=== PATIENT | female | born 1985 | race American Indian/Alaskan Native ===

== ENCOUNTER 2017-09-26 01:57 | Inpatient (IN) | payer SELFPAY ==
[2017-09-26 04:37] LABS: Basophils % (Auto) 0.3 % (0.0-1.8); Eosinophils # (Auto) 0.2 K/mm3 (0.0-0.4); Eosinophils % (Auto) 1.8 % (0.0-4.3); Hemoglobin 10.2 gm/dl (10.1-14.3); Lymphocytes # (Auto) 1.8 K/mm3 (1.2-5.4); Mean Corpuscular HGB Conc 33 % (30-34); Mean Corpuscular Hemoglobin 27 pg (28-32); Mean Corpuscular Volume 84 fl (79-97); Monocytes # (Auto) 0.9 K/mm3 (0.0-0.8); Monocytes % (Auto) 7.1 % (0.0-7.3); Platelet Count 274 K/mm3 (140-440); Red Blood Count 3.71 M/mm3 (3.65-5.03); Red Cell Distribution Width 15.2 % (13.2-15.2)
--- NOTE | 2017-09-26 05:25 | Ultrasound Report ---
FINAL REPORT EXAM: US OB > = 14 WEEKS FETUS HISTORY: 19 weeks. abd pain and AMI leakage COMPARISONS: None. FINDINGS: Transabdominal grayscale and color Doppler 2nd trimester ultrasound There is a single living intrauterine with recorded cardiac activity of 162 beats per minute. Amniotic fluid volume is decreased. Amniotic fluid index is less than 1 cm. The location of the appears abnormally low and may extend into the cervix. Biparietal diameter is 3.7 cm Head circumference is 14.6 cm Abdominal circumference is 10.7 cm Femoral length is 2.7 cm Estimated gestational age by ultrasound today is 17 weeks 3 days, and estimated weight of 193 grams is in the 1st percentile based on prior established dating. IMPRESSION: A single living is detected in the lower uterine segment possibly extending into the cervix with abnormally low amniotic fluid volume. Coupled with history, the most likely diagnosis is in progress. A prior comparison showing the in a normal location would be helpful. Close interval follow-up is suggested. Dr. Law discussed findings with Dr. Palafox At 0417 central Time on 09/26/2017 immediately following the examination.
[2017-09-26] MEDS ORDERED: SUBLIMAZE IV ONE ×2 (06:16→08:16)
--- NOTE | 2017-09-26 06:17 | Emergency Department Report ---
ED HPI - General Chief complaint: Vaginal Bleeding Stated complaint: VAG BLEEDING Time Seen by Provider: 09/26/17 06:10 Source: patient, RN notes reviewed Mode of arrival: Stretcher Limitations: No Limitations - History of Present Illness Initial comments: This is a 31-year-old female who is previously unknown to this provider. She is 6, para 5. 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 She has not had care. Patient reports that she was seen at another hospital last week for leaking membranes. She reports that she was instructed to manage it expectantly. She presents to the ER last night with a complaint of abdominal cramping, vaginal bleeding and discomfort. Symptoms are constant they do not radiate anywhere, they do not have exacerbating or relieving factors. No headache, neck pain, chest pain, shortness of breath, denies urinary symptoms. MD Complaint: abdominal pain, vaginal bleeding, "contractions", other -: Gradual, days(s) Location: pelvis Severity: moderate Quality: cramping Consistency: constant Improves with: none Worsens with: none Associated symptoms: vaginal bleeding, abdominal pain. denies: nausea/vomiting , vaginal discharge, dysuria, headache, vision changes, malaise, rash, seizure, shortness of breath, syncope, weakness Vaginal bleeding: light :: Yes OB History - Current : other OB History - Previous Pregnancies: other Pre-mic care: none - Related Data Previous Rx's Medication Instructions Recorded Last Taken Type Amoxicillin [Trimox CAP] 500 mg PO BID #20 capsule 04/02/17 Unknown Rx Allergies Allergy/AdvReac Type Severity Reaction Status Date / Time chocolate Allergy Rash Uncoded 06/12/13 21:34 ED Review of Systems ROS: Stated complaint: VAG BLEEDING Other details as noted in HPI Comment: All other systems reviewed and negative ED Past Medical Hx - Past Medical History Previous Medical History?: No Additional medical history: bronchitis, heart murmur - Surgical History Past Surgical History?: No - Social History Smoking Status: Never Smoker Substance Use Type: None - Medications Home Medications: Home Medications Medication Instructions Recorded Confirmed Last Taken Type Amoxicillin [Trimox CAP] 500 mg PO BID #20 capsule 04/02/17 Unknown Rx ED Physical Exam - General Limitations: No Limitations General appearance: alert, in no apparent distress - Head Head exam: Present: atraumatic, normocephalic - Eye Eye exam: Present: normal appearance, EOMI. Absent: nystagmus - ENT ENT exam: Present: normal exam, normal orophraynx, mucous membranes moist, normal external ear exam - Neck Neck exam: Present: normal inspection, full ROM - Respiratory Respiratory exam: Present: normal lung sounds bilaterally. Absent: respiratory distress - Cardiovascular Cardiovascular Exam: Present: regular rate, normal rhythm, normal heart sounds. Absent: systolic murmur, diastolic murmur, rubs, gallop - GI/Abdominal GI/Abdominal exam: Present: soft, normal bowel sounds. Absent: distended, tenderness, guarding, rebound, rigid, pulsatile mass - Extremities Exam Extremities exam: Present: normal inspection, full ROM, normal capillary refill. Absent: pedal edema, joint swelling, calf tenderness - Back Exam Back exam: Present: normal inspection, full ROM. Absent: tenderness, CVA tenderness (R), paraspinal tenderness, vertebral tenderness - Neurological Exam Neurological exam: Present: alert, oriented X3, CN II-XII intact, normal gait, other (Extraocular movements intact. Tongue midline. No facial droop. Facial sensation intact to light touch in the V1, V2, V3 distribution bilaterally. 5 and 5 strength in 4 extremities.. Sensation is intact to light touch in 4 extremities.). Absent: motor sensory deficit - Psychiatric Psychiatric exam: Present: normal affect, normal mood - Skin Skin exam: Present: warm, dry, intact, normal color. Absent: rash ED Course Vital Signs 09/26/17 09/26/17 09/26/17 03:12 05:48 06:00 Temperature 98.4 F Pulse Rate 72 74 Respiratory 16 25 H Rate Blood Pressure 120/70 113/62 113/62 O2 Sat by Pulse 98 100 Oximetry 09/26/17 09/26/17 09/26/17 06:15 06:31 06:43 Temperature Pulse Rate 68 76 Respiratory 17 22 18 Rate Blood Pressure 109/59 O2 Sat by Pulse 100 99 98 Oximetry ED Medical Decision Making - Lab Data Result diagrams: 09/26/17 04:21 Vital Signs 09/26/17 09/26/17 09/26/17 03:12 05:48 06:00 Temperature 98.4 F Pulse Rate 72 74 Respiratory 16 25 H Rate Blood Pressure 120/70 113/62 113/62 O2 Sat by Pulse 98 100 Oximetry 09/26/17 09/26/17 09/26/17 06:15 06:31 06:43 Temperature Pulse Rate 68 76 Respiratory 17 22 18 Rate Blood Pressure 109/59 O2 Sat by Pulse 100 99 98 Oximetry Lab Results 09/26/17 09/26/17 09/26/17 Range/Units 04:21 04:21 04:21 WBC 12.0 H (4.5-11.0) K/mm3 RBC 3.71 (3.65-5.03) M/mm3 Hgb 10.2 (10.1-14.3) gm/dl Hct 31.0 (30.3-42.9) % MCV 84 (79-97) fl MCH 27 L (28-32) pg MCHC 33 (30-34) % RDW 15.2 (13.2-15.2) % Plt Count 274 (140-440) K/mm3 Lymph % (Auto) 15.0 (13.4-35.0) % [place] % (Auto) 7.1 (0.0-7.3) % Eos % (Auto) 1.8 (0.0-4.3) % Baso % (Auto) 0.3 (0.0-1.8) % Lymph # 1.8 (1.2-5.4) K/mm3 [place] # 0.9 H (0.0-0.8) K/mm3 Eos # 0.2 (0.0-0.4) K/mm3 Baso # 0.0 (0.0-0.1) K/mm3 Seg Neutrophils % 75.8 H (40.0-70.0) % Seg Neutrophils # 9.1 H (1.8-7.7) K/mm3 HCG, Quant 11386 H (0-4) mIU/mL Blood Type O POSITIVE Antibody Screen Negative - Radiology Data Radiology results: report reviewed, image reviewed Obstetrics ultrasound demonstrates a single living detected in the lower uterine segment, possibly extending into the cervix, with oligohydramnios. This is most likely an in progress, estimated gestational age is 17 weeks and 3 days - Medical Decision Making Differential diagnosis, including but not limited to: , miscarriage, oligohydramnios Assessment and plan: 31-year-old female who reports no care with inevitable , and oligohydramnios. She is hemodynamically stable at this time. She is actively miscarrying. Case is presented to the TIGHTENING MACHINE OPERATOR physician, Dr. Serrato, Who accepted the patient to her service. Critical care attestation.: If time is entered above; I have spent that time in minutes in the direct care of this critically ill patient, excluding procedure time. ED Disposition Clinical Impression: Miscarriage Oligohydramnios Qualifiers: Fetus number: single or unspecified fetus Trimester: second trimester Qualified Code(s): O41.02X0 - Oligohydramnios, second trimester, not applicable or unspecified Disposition: DC-09 OP ADMIT IP TO THIS HOSP Is pt being admited?: Yes Condition: Good Referrals: PRIMARY CARE, [Primary Care Provider] - 3-5 Days
--- NOTE | 2017-09-26 07:09 | History and Physical Report ---
History of Present Illness Date of examination: 09/26/17 Chief complaint: Vaginal bleeding History of present illness: This is a 31-year-old female 6 para 5 who presented to the emergency room complaining of vaginal bleeding. Patient states she was evaluated at [facility] last week for abdominal pain and leaking fluid from the vagina. She was diagnosed with a 19 week intrauterine and ruptured membranes. She states she was discharged home and instructed to follow-up with her contracting specialist for evaluation. Patient stated she started having cramping and bleeding and presented to the ED for further evaluation. Ultrasound revealed a 17 week in the lower uterine segment and vagina with no fluid consistent with an inevitable . Pelvic exam revealed foul-smelling odor and discharge with parts in the vagina at 0 station. Patient admitted now for a viable . 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: denies: chlamydia, gonorrhea, hepatitis B, hepatitis C, herpes, HIV , syphilis, trichomonas Social history: smoking Medications and Allergies Allergies Allergy/AdvReac Type Severity Reaction Status Date / Time chocolate Allergy Rash Uncoded 06/12/13 21:34 Home Medications Medication Instructions Recorded Confirmed Last Taken Type Amoxicillin [Trimox CAP] 500 mg PO BID #20 capsule 04/02/17 Unknown Rx Review of Systems All systems: negative Genitourinary: leakage of fluid, other - Vital Signs Vital signs: Vital Signs Temp Pulse Resp BP Pulse Ox 98.4 F 72 16 120/70 98 09/26/17 03:12 09/26/17 03:12 09/26/17 03:12 09/26/17 03:12 09/26/17 03:12 Temp Pulse Resp BP Pulse Ox 98.4 F 76 18 109/59 98 09/26/17 03:12 09/26/17 06:31 09/26/17 06:43 09/26/17 06:31 09/26/17 06:43 - Physical Exam Breasts: Positive: deferred Lungs: Positive: Normal air movement Abdomen: Positive: normal appearance, tenderness Genitourinary (Female): Positive: normal external genitalia, normal perenium Vulva: both: normal Vagina: Positive: other (foul-smelling fluid in the vagina with parts palpated at 0 station) - Obstetrical Cervical Dilatation: 10 Cervical Effacement Percentage: 100 station: 0 Results Result Diagrams: 09/26/17 04:21 Abnormal lab results 09/26/17 09/26/17 Range/Units 04:21 04:21 WBC 12.0 H (4.5-11.0) K/mm3 MCH 27 L (28-32) pg Bertie # 0.9 H (0.0-0.8) K/mm3 Seg Neutrophils % 75.8 H (40.0-70.0) % Seg Neutrophils # 9.1 H (1.8-7.7) K/mm3 HCG, Quant 88550 H (0-4) mIU/mL All other labs normal. Ultrasound: report reviewed Assessment and Plan - Patient Problems (1) Inevitable Current Visit: Yes Status: Acute Plan to address problem: Patient is to be admitted to complete delivery due to chorioamnionitis and inevitable (2) Chorioamnionitis in second trimester Current Visit: Yes Status: Acute Qualifiers: Fetus number: single or unspecified fetus Qualified Code(s): O41.1220 - Chorioamnionitis, second trimester, not applicable or unspecified
[2017-09-26] MEDS ORDERED: SUBLIMAZE ONE (08:17)
[2017-09-26] MEDS ORDERED: PITOCin/NS 30 UNIT/500ML 30 UNITS/500 ML BAG IV SCH (10:00)
[2017-09-26] MEDS ORDERED: PITOCin/NS 20 UNIT/1000ML DRIP 20 UNITS/1,000 ML BAG IV SCH (10:00)
[2017-09-26] MEDS ORDERED: ePHEDrine SULFATE IV PRN (10:00)
[2017-09-26] MEDS ORDERED: XYLOCAINE 2% INFILTRATI NR (10:30)
[2017-09-26] MEDS ORDERED: MINERAL OIL PO PRN (10:30)
[2017-09-26] MEDS: SUBLIMAZE IV PRN ×4 (10:30→23:03)
[2017-09-26] MEDS ORDERED: NARCAN 0.4 MG/1 ML IV PRN (10:30)
[2017-09-26] MEDS: ceFAZolin 1 GM in NACL 0.9% 20 ML IV SCH ×2 (11:00→19:00)
--- NOTE | 2017-09-26 11:19 | Progress Note ---
Assessment and Plan - Patient Problems (1) Chorioamnionitis in second trimester Current Visit: Yes Status: Acute Qualifiers: Fetus number: single or unspecified fetus Qualified Code(s): O41.1220 - Chorioamnionitis, second trimester, not applicable or unspecified Plan to address problem: -con't antibx - parts palpated in the vagina. Pt does now want to push at this time but c /o pressure and pain (2) Inevitable Current Visit: Yes Status: Acute Plan to address problem: -at 10 cm dilated, no cervix felt at this time. Pt having active bleeding -anticpate delivery. Subjective - Subjective Date of service: 09/26/17 Principal diagnosis: Prolonged ROM; Chorio; inevitalbe Interval history: Pt c/o pain and pressure parts palpated at 1 to 2+ station at this time.No cervix is felt at this time. Objective - Vital Signs Vital Signs: Vital Signs - 12hr 09/26/17 09/26/17 09/26/17 03:12 05:48 06:00 Temperature 98.4 F Pulse Rate 72 74 Respiratory 16 25 H Rate Blood Pressure 120/70 113/62 113/62 Blood Pressure [Left] O2 Sat by Pulse 98 100 Oximetry 09/26/17 09/26/17 09/26/17 06:15 06:31 06:43 Temperature Pulse Rate 68 76 Respiratory 17 22 18 Rate Blood Pressure 109/59 Blood Pressure [Left] O2 Sat by Pulse 100 99 98 Oximetry 09/26/17 09/26/17 09/26/17 06:45 07:00 07:15 Temperature Pulse Rate 67 69 66 Respiratory 17 20 22 Rate Blood Pressure 108/63 103/55 107/59 Blood Pressure [Left] O2 Sat by Pulse 97 96 Oximetry 09/26/17 09/26/17 09/26/17 07:30 07:45 08:00 Temperature Pulse Rate 78 72 70 Respiratory 21 21 18 Rate Blood Pressure 98/62 108/62 103/53 Blood Pressure [Left] O2 Sat by Pulse 95 95 99 Oximetry 09/26/17 09/26/17 09/26/17 08:15 08:22 08:30 Temperature Pulse Rate 80 83 Respiratory 12 16 18 Rate Blood Pressure 116/58 116/74 109/55 Blood Pressure [Left] O2 Sat by Pulse 94 95 Oximetry 04/09/26/17 09/26/17 08:45 09:00 09:46 Temperature 97.9 F Pulse Rate 70 73 88 Respiratory 17 17 16 Rate Blood Pressure 101/53 98/52 Blood Pressure 120/75 [Left] O2 Sat by Pulse 95 95 Oximetry - Exam Cervical Dilatation: 10 Cervical Effacement Percentage: 100 station: 1+ - Labs Labs: Abnormal Labs 09/26/17 09/26/17 04:21 04:21 WBC 12.0 H MCH 27 L [place] # 0.9 H Seg Neutrophils % 75.8 H Seg Neutrophils # 9.1 H HCG, Quant [id number] H Laboratory Results - last 24 hr 09/26/17 09/26/17 09/26/17 04:21 04:21 04:21 WBC 12.0 H RBC 3.71 Hgb 10.2 Hct 31.0 MCV 84 MCH 27 L MCHC 33 RDW 15.2 Plt Count 274 Lymph % (Auto) 15.0 [place] % (Auto) 7.1 Eos % (Auto) 1.8 Baso % (Auto) 0.3 Lymph # 1.8 [place] # 0.9 H Eos # 0.2 Baso # 0.0 Seg Neutrophils % 75.8 H Seg Neutrophils # 9.1 H HCG, Quant 03722 H Blood Type O POSITIVE Antibody Screen Negative
[2017-09-26 12:49] LABS: Bacteria,Urine 1+ /HPF (Negative); Bilirubin,Urine NEG (Negative); Blood,Urine LG (Negative); Color,Urine Red (Yellow); Urobilinogen,Urine < 2.0 mg/dL (<2.0)
[2017-09-26 12:50] LABS: RBC,Urine > 182.0 /HPF (0.0-6.0)
[2017-09-26] MEDS: LACTATED RINGERS 1,000 ML IV SCH ×2 (13:22→20:15)
[2017-09-26] MEDS ORDERED: ANCEF/NS 1 GM/50 ML 1 GM/50 ML BAG IV SCH (15:03)
[2017-09-26] MEDS ORDERED: STADOL IV PRN (19:41)
--- NOTE | 2017-09-26 22:46 | Procedure Note ---
OB Delivery Note - Vaginal Delivery presentation: unknown Delivery induction: none Delivery monitor: none Route of delivery: Delivery placenta: spontaneous Episiotomy: none Anesthesia: intravenous Delivery comments: Called by RM for delivery of nonviable 17 wk fetus at about 1600pm with delivery of the placenta at this time. Placenta examined and appears to be intact. Minimal bleeding noted. Pt pain is well controlled at this time.
[2017-09-26] MEDS ORDERED: ZOFRAN IV PRN (22:47)
[2017-09-26] MEDS ORDERED: PHENERGAN PR PRN (22:47)
[2017-09-26] MEDS ORDERED: BENADRYL PO PRN (22:47)
[2017-09-26] MEDS ORDERED: PHENERGAN PO PRN (22:47)
[2017-09-26] MEDS ORDERED: DULCOLAX PR PRN (22:47)
[2017-09-26] MEDS ORDERED: TUCKS PAD TP PRN (22:47)
[2017-09-26] MEDS ORDERED: LANSINOH TP PRN (22:47)
[2017-09-26] MEDS ORDERED: SODIUM CHLORIDE FLUSH SYRINGE 10 ML IV PRN (23:00)
[2017-09-27] MEDS: TORADOL IV PRN ×2 (01:05→08:29)
[2017-09-27] MEDS: AMBIEN PO PRN ×2 (02:56→23:10)
[2017-09-27] MEDS ORDERED: D5LR 1,000 ML IV SCH (05:00)
--- NOTE | 2017-09-27 06:26 | Progress Note ---
Assessment and Plan demised baby <20 weeks gestation. VSS afebrile. FF well below Some abdominal tenderness, no guarding. Post del H&H due @ 1000; no s/sx of anemia. Pt stable s/p vag delivery SAB; chorio/PPROM P: continue pathway Pt asks to stay one more day. Will d/c tomorrow Subjective - Subjective Date of service: 09/27/17 (Complex Case Manager Note) Principal diagnosis: 12hr s/p demise; Prolonged ROM; Chorio; inevitalbe Patient reports: appetite normal, voiding normally, pain well controlled, ambulating normally : Objective - Vital Signs Latest vital signs: Vital Signs Temp Pulse Resp BP BP Pulse Ox 09/27/17 05:09 97.7 F 61 18 114/72 09/27/17 01:35 18 09/27/17 01:05 18 09/26/17 23:50 98.3 F 60 18 119/75 100 09/26/17 23:40 97.6 F 62 18 113/62 100 09/26/17 23:33 18 09/26/17 23:25 98.0 F 50 L 18 111/69 100 09/26/17 23:07 98.1 F 57 L 18 102/65 99 09/26/17 23:03 18 09/26/17 20:05 98.2 F 62 18 104/59 96 09/26/17 20:04 18 09/26/17 16:25 98 F 61 18 121/61 09/26/17 14:00 98.1 F 66 16 112/60 09/26/17 09:46 97.9 F 88 16 120/75 09/26/17 09:00 73 17 98/52 95 09/26/17 08:45 70 17 101/53 95 09/26/17 08:30 83 18 109/55 95 09/26/17 08:22 16 116/74 09/26/17 08:15 80 12 116/58 94 09/26/17 08:00 70 18 103/53 99 09/26/17 07:45 72 21 108/62 95 09/26/17 07:30 78 21 98/62 95 09/26/17 07:15 66 22 107/59 09/26/17 07:00 69 20 103/55 96 09/26/17 06:45 67 17 108/63 97 09/26/17 06:43 18 98 09/26/17 06:31 76 22 109/59 99 Intake and Output 09/26/17 09/26/17 09/27/17 14:59 22:59 06:59 Intake Total 20 860.417 Balance 20 860.417 Intake: IV 20 860.417 Lactated Ringers 1,000 ml 860.417 @ 125 mls/hr IV DIRECT LUCIA Rx#:[id number] Left Antecubital 20 - Exam Breasts: Present: normal Cardiovascular: Present: Regular rate Lungs: Present: Normal air movement Abdomen: Present: normal appearance, soft Vulva: both: normal Uterus: Present: firm, tenderness, fundal height below umbilicus Extremities: Present: normal Deep Tendon Reflex Grade: Normal +2 - Labs Labs: Abnormal lab results 09/26/17 Range/Units 11:37 Urine WBC (Auto) 59.0 H (0.0-6.0) /HPF
[2017-09-27] MEDS: MOTRIN PO SCH ×3 (12:28→23:06)
[2017-09-27] MEDS ORDERED: COLACE PO SCH (17:00)
[2017-09-27] MEDS: FEOSOL PO SCH (22:44)
[2017-09-27] MEDS ORDERED: NORCO 7.5/325 PO ONE (23:40)
[2017-09-28] MEDS: TYLENOL PO PRN ×2 (03:47→09:44)
[2017-09-28] MEDS ORDERED: BOOSTRIX IM ONE (06:00)
[2017-09-28] MEDS: MOTRIN PO SCH (06:25)
--- NOTE | 2017-09-28 08:18 | Discharge Summary ---
Providers - Providers Date of Admission: 09/26/17 07:56 Date of discharge: 09/28/17 (desires d/c home) Attending physician: LIZA COOLEY Primary care physician: OUTPATIENT CODING SPECIALIST Hospitalization Reason for admission: labor, chorio Condition: Good Pertinent studies: post delivery H&H 8.0/24.0 Procedures: vaginal delivery nonviable Hospital course: uncomplicated vaginal delivery and course Disposition: DC-01 TO HOME OR SELFCARE - Discharge Diagnoses (1) Miscarriage Status: Acute Core Measure Documentation - Palliative Care Palliative Care/ Comfort Measures: Not Applicable - Core Measures Any of the following diagnoses?: none Exam - Constitutional Vitals: Temp Pulse Resp BP Pulse Ox 98.4 F 63 18 114/53 98 09/28/17 05:02 09/28/17 05:02 09/28/17 05:02 09/28/17 05:02 09/28/17 05:02 General appearance: Present: no acute distress, well-nourished - EENT Eyes: Present: PERRL ENT: hearing intact, clear oral mucosa - Neck Neck: Present: supple, normal ROM - Respiratory Respiratory effort: normal Respiratory: bilateral: CTA - Cardiovascular Heart Sounds: Present: S1 & S2. Absent: rub, click - Extremities Extremities: pulses symmetrical, No edema Peripheral Pulses: within normal limits - Abdominal General gastrointestinal: Present: soft, non-tender, non-distended, normal bowel sounds Female genitourinary: Present: normal - Integumentary Integumentary: Present: clear, warm, dry - Musculoskeletal Musculoskeletal: gait normal, strength equal bilaterally - Psychiatric Psychiatric: appropriate mood/affect, intact judgment & insight - Neurologic Neurologic: CNII-XII intact, moves all extremities - Additional findings Additional findings: Lochia scant, VSSAF, no s/s anemia Plan Activity: no restrictions Diet: regular Follow up with: PRIMARY CAREMD [Primary Care Provider] - 3-5 Days TI GOMEZ MD [Staff Physician] - 10/26/17 (Please call [phone] to schedule an appointment in our office in 4 weeks. Call for any questions or concerns.)
[2017-09-28] MEDS ORDERED: DEPO-PROVERA (CONTRACEPTION) IM NR (09:00)
[2017-09-28 09:07] VITALS: BP 116/68
[2017-09-28] MEDS: FEOSOL PO SCH (09:43)
== END 2017-09-28 10:45 | disposition home or self-care (01) | DRG 779 ==
LOC: ED 01:57 → OB 07:56 → LD 08:58 → OB 09-27 00:14
PROVIDERS: ADMIT Obstetrics & Gynecology; ATTEND Obstetrics & Gynecology
PROC: 10E0XZZ Delivery of Products of Conception, External Approach (ICD-10-PCS; principal; 2017-09-26)
DX: O03.9 Complete or unspecified spontaneous abortion without complication (principal); O41.1220 Chorioamnionitis, second trimester, not applicable or unspecified; O41.02X0 Oligohydramnios, second trimester, not applicable or unspecified; Z37.1 Single stillbirth; Z3A.17 17 weeks gestation of pregnancy
CPT/HCPCS: 36415; 76805; 81001; 84702; 85014; 85018; 85025; 86592; 86850; 86900; 86901; 88305; 96374; 96375; J0690; J1050; J1885; J2590; J3010; J7120; J7121

== ENCOUNTER 2018-07-03 11:45 | Emergency (ER) | payer MEDICAID, OTHER ==
[2018-07-03 12:14] VITALS: BP 132/91
[2018-07-03 13:15] LABS: Bilirubin,Urine NEG (Negative); Blood,Urine SM (Negative); Color,Urine Yellow (Yellow); Mucus,Urine FEW /HPF; Protein,Urine <15 mg/dL mg/dL (Negative)
[2018-07-03 13:23] LABS: HCG Qualitative,Urine Negative (Negative)
--- NOTE | 2018-07-03 14:43 | Emergency Department Report ---
ED Dysuria HPI - HPI Chief Complaint: Urogenital-Female Stated Complaint: VAGINAL DISCOMFORT/POSSIBLE PREG Time Seen by Provider: 07/03/18 14:40 Duration: 1 Day Location of Discomfort: Suprapubic Severity: Mild Symptoms: Dysuria: No, Frequency: No, Suprapubic Pain: No, Flank Pain: No, Fever: No, Hematuria: No, Abdominal Pain: No, Previous UTI's: No Other History: Patient is a 32-year-old -[place] female who comes to the ER today with HER-2 small children. The mother is complaining of vaginal irritation after using new condoms. She is also concerned that she is . She also has a mild upper respiratory infection as evidenced by cough and runny nose for 3 days. ED Review of Systems ROS: Stated complaint: VAGINAL DISCOMFORT/POSSIBLE PREG Other details as noted in HPI Comment: All other systems reviewed and negative Constitutional: denies: chills, fever Eyes: denies: eye pain, vision change ENT: as per HPI, throat pain. denies: ear pain, dental pain, hearing loss, epistaxis Respiratory: see HPI, cough. denies: orthopnea, SOB with exertion Cardiovascular: denies: chest pain Endocrine: denies: excessive sweating Gastrointestinal: denies: abdominal pain Genitourinary: as per HPI, abnormal menses, other (general irritation). denies: urgency Musculoskeletal: as per HPI, myalgia. denies: back pain Skin: denies: lesions Neurological: denies: headache Psychiatric: denies: anxiety Hematological/Lymphatic: denies: easy bleeding ED Past Medical Hx - Past Medical History Previous Medical History?: Yes Hx Hypertension: No Hx Congestive Heart Failure: No Hx Diabetes: No Hx Deep Vein Thrombosis: No Hx Renal Disease: No Hx Sickle Cell Disease: No Hx Seizures: No Hx Asthma: No Hx COPD: No Hx HIV: No Additional medical history: bronchitis, heart murmur - Surgical History Past Surgical History?: No - Social History Smoking Status: Current Every Day Smoker - Medications Home Medications: Home Medications Medication Instructions Recorded Confirmed Last Taken Type Amoxicillin 500 mg PO BID #20 capsule 07/03/18 Unknown Rx Dysuria Exam - Exam General: Vital signs noted. No distress. Alert and acting appropriately. Exam: Yes Moist Mucous Membranes, No CVA Tenderness, No Abdominal Tenderness, No Rigidity or Guarding Labs: Lab Results 07/03/18 Range/Units 12:53 Urine Color Yellow (Yellow) Urine Turbidity Clear (Clear) Urine pH 6.0 (5.0-7.0) Ur Specific [place] 1.018 (1.003-1.030) Urine Protein <15 mg/dl (Negative) mg/dL Urine Glucose (UA) Neg (Negative) mg/dL Urine Ketones Neg (Negative) mg/dL Urine Blood Sm (Negative) Urine Nitrite Neg (Negative) Urine Bilirubin Neg (Negative) Urine Urobilinogen 2.0 (<2.0) mg/dL Ur Leukocyte Esterase Neg (Negative) Urine WBC (Auto) 1.0 (0.0-6.0) /HPF Urine RBC (Auto) 2.0 (0.0-6.0) /HPF U Epithel Cells (Auto) 1.0 (0-13.0) /HPF Urine Mucus Few /HPF Urine HCG, Qual Negative (Negative) ED Course Vital Signs 07/03/18 12:08 Temperature 98.4 F Pulse Rate 68 Respiratory 18 Rate Blood Pressure 132/91 O2 Sat by Pulse 98 Oximetry ED Medical Decision Making - Medical Decision Making PREG NEG UA CLEAN IRRITATION FROM NEW [place] HERE WITH 2 SMALL KIDS WITH URTI NONTOXIC TAKING PO NO FEVER WILL TX CONSERVATIVELY I'VE GIVEN HER RX/ AND THE KIDS RX FOR AMOX SHOULD THEY GET WORSE. Labs 07/03/18 12:53 Urine Color Yellow Urine Turbidity Clear Urine pH 6.0 Ur Specific [place] 1.018 Urine Protein <15 mg/dl Urine Glucose (UA) Neg Urine Ketones Neg Urine Blood Sm Urine Nitrite Neg Urine Bilirubin Neg Urine Urobilinogen 2.0 Ur Leukocyte Esterase Neg Urine WBC (Auto) 1.0 Urine RBC (Auto) 2.0 U Epithel Cells (Auto) 1.0 Urine Mucus Few Urine HCG, Qual Negative - Differential Diagnosis RO PREG Critical care attestation.: If time is entered above; I have spent that time in minutes in the direct care of this critically ill patient, excluding procedure time. ED Disposition Clinical Impression: Vaginal irritation, Viral upper respiratory illness Disposition: DC-01 TO HOME OR SELFCARE Is pt being admited?: No Does the pt Need Aspirin: No Condition: Stable Instructions: Viral Syndrome (ED) Additional Instructions: Motrin or Tylenol for pain or fever Vaseline for her lips Almost humidifier to the room for comfort [id number] Robitussin for cough Well with water FOLLOW UP with primary care in 48 hours if not better Medication as we discussed- START AMOX IN 48 H IF NO BETTER OR WORSE GO BACK TO BASIC SOAPS AND PRODUCTS Prescriptions: Amoxicillin 500 mg PO BID #20 capsule Referrals: STANLEY ORR MD [Primary Care Provider] - 3-5 Days Forms: Work/School Release Form(ED) Time of Disposition: 14:42
[2018-07-03] MEDS ORDERED: IBUPROFEN PO ONE (14:57)
== END 2018-07-03 15:19 | disposition home or self-care (01) ==
LOC: ED 11:45
DX: N76.0 Acute vaginitis (principal); J06.9 Acute upper respiratory infection, unspecified; F17.200 Nicotine dependence, unspecified, uncomplicated; Z91.018 Allergy to other foods
CPT/HCPCS: 81001; 81025; 99283